=== PATIENT | female | born 1960 | race Hispanic/Latino ===

== ENCOUNTER 2019-02-15 11:32 | Emergency (ER) | payer MEDICAID ==
--- NOTE | 2019-02-15 11:45 | Event Note ---
ED Screening Note ED Screening Note: G tube is not working as well abdominal discomfort +nausea, diarrhea This initial assessment/diagnostic orders/clinical plan/treatment(s) is/are subject to change based on patients health status, clinical progression and re- assessment by fellow clinical providers in the ED. Further treatment and workup at subsequent clinical providers discretion. Patient/guardian urged not to elope from the ED as their condition may be serious if not clinically assessed and managed. Initial orders include: XR abdomen, labs
--- NOTE | 2019-02-15 12:14 | Emergency Department Report ---
ED General Adult HPI - General Chief complaint: Medical Clearance Stated complaint: G TUBE Time Seen by Provider: 02/15/19 11:43 Source: family Mode of arrival: Wheelchair Limitations: Other - History of Present Illness Initial comments: Patient is 59 years old female with history of mental retardation and hypertension. Patient brought to the emergency room by her caregiver stating that yesterday however due to was blocked but they're able to use it this morning. Caregiver noted that she has some nausea, vomiting and diarrhea this morning. Caregiver denied any fever or chills. They stated that she has been acting normal. Patient is not communicating so unable to provide more history. - Related Data Home Medications Medication Instructions Recorded Confirmed Last Taken Alendronate Sodium [Fosamax] 10 mg FEEDTUBE DAILY 08/11/13 10/11/13 10/11/13 Ascorbic Acid [Vitamin C] 500 mg PO DAILY 08/11/13 10/11/13 10/11/13 Aspirin [Aspirin BABY CHEW TAB] 81 mg FEEDTUBE DAILY 08/11/13 10/11/13 10/11/13 Benztropine [Cogentin] 2 mg FEEDTUBE DAILY 08/11/13 10/11/13 10/11/13 Calcium Citrate/Vitamin D3 200 tab FEEDTUBE DAILY 08/11/13 10/11/13 10/11/13 [Calcium Cit-Vit D 250-200 Cplt] Cetirizine HCl [Cetirizine 10mg 10 mg FEEDTUBE DAILY 08/11/13 10/11/13 10/11/13 chew] Guar Gum [Benefiber] 1 each FEEDTUBE DAILY 08/11/13 10/11/13 10/11/13 LORazepam [Ativan] 2 mg FEEDTUBE BID 08/11/13 10/11/13 10/11/13 Mirtazapine [Remeron] 30 mg FEEDTUBE DAILY 08/11/13 10/11/13 10/11/13 Multivitamin/Iron/Folic Acid [One 1 each FEEDTUBE DAILY 08/11/13 10/11/13 10/11/13 Daily Plus Iron Tablet] Olanzapine [ZyPREXA Zydis] 20 mg FEEDTUBE DAILY 08/11/13 10/11/13 10/11/13 Polyethylene Glycol 3350 [Miralax] 255 gm FEEDTUBE DAILY 02/10/11/13 10/11/13 Ranitidine HCl [Acid Nuclear Reactor Engineer 75mg 75 mg FEEDTUBE BID 08/11/13 10/11/13 10/11/13 Tab] Previous Rx's Medication Instructions Recorded Last Taken Type Ondansetron [Zofran Oral Liq] 4 mg PO Q4-6H PRN #40 ml 10/11/13 Unknown Rx Allergies Allergy/AdvReac Type Severity Reaction Status Date / Time oxybutynin chloride AdvReac Unknown Verified 02/15/19 11:33 [From Ditropan] ED Review of Systems ROS: Stated complaint: G TUBE Other details as noted in HPI Comment: All other systems reviewed and negative Constitutional: denies: chills, fever Respiratory: denies: cough, shortness of breath, SOB with exertion, SOB at rest Cardiovascular: denies: chest pain, palpitations Gastrointestinal: nausea, vomiting, diarrhea Musculoskeletal: denies: back pain ED Past Medical Hx - Past Medical History Hx Hypertension: Yes Hx GERD: Yes Additional medical history: Mental Retardation, Osteoporosis, Anemia - Surgical History Additional Surgical History: g-tube - Social History Smoking Status: Never Smoker Substance Use Type: None - Medications Home Medications: Home Medications Medication Instructions Recorded Confirmed Last Taken Type Alendronate Sodium [Fosamax] 10 mg FEEDTUBE DAILY 08/11/13 10/11/13 10/11/13 History Ascorbic Acid [Vitamin C] 500 mg PO DAILY 08/11/13 10/11/13 10/11/13 History Aspirin [Aspirin BABY CHEW TAB] 81 mg FEEDTUBE DAILY 08/11/13 10/11/13 10/11/13 History Benztropine [Cogentin] 2 mg FEEDTUBE DAILY 08/11/13 10/11/13 10/11/13 History Calcium Citrate/Vitamin D3 200 tab FEEDTUBE DAILY 08/11/13 10/11/13 10/11/13 History [Calcium Cit-Vit D 250-200 Cplt] Cetirizine HCl [Cetirizine 10mg 10 mg FEEDTUBE DAILY 08/11/13 10/11/13 10/11/13 History chew] Guar Gum [Benefiber] 1 each FEEDTUBE DAILY 08/11/13 10/11/13 10/11/13 History LORazepam [Ativan] 2 mg FEEDTUBE BID 02/10/11/13 10/11/13 History Mirtazapine [Remeron] 30 mg FEEDTUBE DAILY 08/11/13 10/11/13 10/11/13 History Multivitamin/Iron/Folic Acid [One 1 each FEEDTUBE DAILY 08/11/13 10/11/13 10/11/13 History Daily Plus Iron Tablet] Olanzapine [ZyPREXA Zydis] 20 mg FEEDTUBE DAILY 08/11/13 10/11/13 10/11/13 History Polyethylene Glycol 3350 [Miralax] 255 gm FEEDTUBE DAILY 08/11/13 10/11/13 10/11/13 History Ranitidine HCl [Acid Nuclear Reactor Engineer 75mg 75 mg FEEDTUBE BID 08/11/13 10/11/13 10/11/13 History Tab] Ondansetron [Zofran Oral Liq] 4 mg PO Q4-6H PRN #40 ml 10/11/13 Unknown Rx ED Physical Exam - General Limitations: Physical Limitation, Other General appearance: alert, in no apparent distress - Eye Eye exam: Present: normal appearance - ENT ENT exam: Present: normal exam, normal orophraynx, mucous membranes moist - Neck Neck exam: Present: normal inspection, full ROM. Absent: tenderness, meningismus, lymphadenopathy, thyromegaly - Respiratory Respiratory exam: Present: normal lung sounds bilaterally - Cardiovascular Cardiovascular Exam: Present: regular rate, normal rhythm, normal heart sounds - GI/Abdominal GI/Abdominal exam: Present: soft, normal bowel sounds, other (G-tube in place, no surrounding erythema or discharge.). Absent: distended, tenderness, guarding, rebound, rigid, organomegaly, mass, bruit, pulsatile mass, hernia - Extremities Exam Extremities exam: Present: normal inspection, full ROM, normal capillary refill. Absent: pedal edema, calf tenderness - Back Exam Back exam: Present: normal inspection, full ROM. Absent: CVA tenderness (R), CVA tenderness (L), vertebral tenderness - Neurological Exam Neurological exam: Present: alert - Skin Skin exam: Present: warm, intact, normal color ED Course Vital Signs 02/15/19 02/15/19 11:43 12:57 Temperature 98.1 F 98.2 F Pulse Rate 87 76 Respiratory 18 19 Rate Blood Pressure 102/82 Blood Pressure 125/69 [Left] O2 Sat by Pulse 98 98 Oximetry ED Medical Decision Making - Lab Data Result diagrams: 02/15/19 11:58 02/15/19 11:58 - Radiology Data Radiology results: report reviewed Abdominal x-rays showed a fecal retention consistent with constipation. - Medical Decision Making Patient is 59 years old female with history of mental retardation and hypertension. Patient brought to the emergency room by her caregiver stating that yesterday however due to was blocked but they're able to use it this morning. Caregiver noted that she has some nausea, vomiting and diarrhea this morning. Caregiver denied any fever or chills. They stated that she has been acting normal. Patient is not communicating so unable to provide more history. Patient remained stable. G-tube checked and is functioning well. Labs reviewed that is unremarkable. Abdominal x-ray showed a fecal retention consistent with constipation. Patient given prescription for lactulose and advised to follow- up with primary care physician in the next 2-3 days and to return to the ER if symptoms are not improved. Critical care attestation.: If time is entered above; I have spent that time in minutes in the direct care of this critically ill patient, excluding procedure time. ED Disposition Clinical Impression: Malfunction of gastrostomy tube, Constipation Disposition: DC-01 TO HOME OR SELFCARE Is pt being admited?: No Condition: Stable Instructions: Constipation (ED), High Fiber Diet (ED) Referrals: PRIMARY CARE, [Primary Care Provider] - 3-5 Days
[2019-02-15 12:19] LABS: Basophils % (Auto) 0.3 % (0.0-1.8); Eosinophils % (Auto) 0.1 % (0.0-4.3); Hematocrit 38.9 % (30.3-42.9); Hemoglobin 13.4 gm/dl (10.1-14.3); Lymphocytes # (Auto) 0.5 K/mm3 (1.2-5.4); Lymphocytes % (Auto) 6.6 % (13.4-35.0); Mean Corpuscular HGB Conc 35 % (30-34); Mean Corpuscular Volume 92 fl (79-97); Monocytes # (Auto) 0.3 K/mm3 (0.0-0.8); Monocytes % (Auto) 4.6 % (0.0-7.3); Platelet Count 145 K/mm3 (140-440); Red Blood Count 4.22 M/mm3 (3.65-5.03); Red Cell Distribution Width 13.5 % (13.2-15.2)
--- NOTE | 2019-02-15 12:44 | XRay Report ---
ABDOMEN 2 VIEW(S) INDICATION / CLINICAL INFORMATION: G tube not flowing well, abdominal discomfort. COMPARISON: None available. FINDINGS: TUBES / LINES: None. BOWEL GAS PATTERN/EXTRALUMINAL GAS: No significant abnormality. No pneumatosis or secondary signs of free air. Moderate amount of stool in the colon. ADDITIONAL FINDINGS: No significant additional findings. IMPRESSION: 1. No acute findings. Moderate amount stool in the colon which may indicate underlying constipation. Signer Name: Valente Bacon MD Signed: 02/15/2019 12:39 PM Workstation Name: [id number]
[2019-02-15 12:47] LABS: Alanine Aminotransferase 19 units/L (7-56); Albumin 4.4 g/dL (3.9-5); BUN/Creatinine Ratio 20; Blood Urea Nitrogen 14 mg/dL (7-17); Calcium 9.6 mg/dL (8.4-10.2); Hemolysis Index 13
[2019-02-15 12:57] VITALS: BP 125/69
== END 2019-02-15 14:05 | disposition home or self-care (01) ==
LOC: ED 11:32
DX: K94.23 Gastrostomy malfunction (principal); K59.00 Constipation, unspecified; I10 Essential (primary) hypertension; K21.9 Gastro-esophageal reflux disease without esophagitis; F79 Unspecified intellectual disabilities; Z88.8 Allergy status to other drugs, medicaments and biological substances; Z79.899 Other long term (current) drug therapy
CPT/HCPCS: 36415; 74019; 80053; 83690; 85025

== ENCOUNTER 2019-08-01 13:16 | Emergency (ER) | payer MEDICAID ==
[2019-08-01 14:16] VITALS: BP 137/67
--- NOTE | 2019-08-01 14:16 | Emergency Department Report ---
Chief Complaint: Medical Clearance Stated Complaint: GTUBE LEAKING Time Seen by Provider: 08/01/19 14:15 - HPI History of Present Illness: 59 y/o female with developmental delay s/p g tube placement last week by Dr Vinita Toussaint, presents with care givers for leaking g tube no n/v fevers chills xr abd labs d/w Dr Toussaint reassess Vital Signs 08/01/19 14:14 Temperature 97.4 F L Pulse Rate 69 Respiratory 22 Rate Blood Pressure 137/67 O2 Sat by Pulse 100 Oximetry MSE screening note: Focused history and physical exam performed. Due to findings the following was ordered: ED Disposition for MSE Condition: Stable
[2019-08-01 15:09] LABS: Hematocrit 34.9 % (30.3-42.9); Hemoglobin 12.1 gm/dl (10.1-14.3); Mean Corpuscular HGB Conc 35 % (30-34); Mean Corpuscular Volume 92 fl (79-97); Platelet Count 150 K/mm3 (140-440); Red Cell Distribution Width 12.9 % (13.2-15.2)
[2019-08-01 15:20] LABS: INR 0.92 (0.87-1.13)
[2019-08-01 15:25] LABS: BUN/Creatinine Ratio 30; Blood Urea Nitrogen 15 mg/dL (7-17); Hemolysis Index 86
--- NOTE | 2019-08-01 15:31 | XRay Report ---
ABDOMEN 1 VIEW(S) INDICATION / CLINICAL INFORMATION: leaking g tube. COMPARISON: 02/15/2019 FINDINGS: TUBES / LINES: PEG tube overlies the left upper quadrant. BOWEL GAS PATTERN: No significant abnormality. FREE AIR / EXTRALUMINAL GAS: None seen. ADDITIONAL FINDINGS: No significant additional findings. IMPRESSION: No significant abnormality. No obvious abnormality with the PEG tube. Signer Name: Lalito Alan Jr, MD Signed: 08/01/2019 3:26 PM Workstation Name: [id number]
--- NOTE | 2019-08-01 18:07 | Emergency Department Report ---
ED General Adult HPI - General Chief complaint: Medical Clearance Stated complaint: GTUBE LEAKING Time Seen by Provider: 08/01/19 14:15 Source: RN/MD Mode of arrival: Wheelchair Limitations: Other - History of Present Illness Initial comments: A 59-year-old female with developmental delay who presents to the emergency room leakage around G-tube. Patient direct care worker at bedside and states she noticed leakage around G-tube during 1000 feeding. Patient caregiver reports new G-tube placement last week by Dr. Vinita Pino. States they called Dr. Pino and told to come to the ER for evaluation. -: This morning Time: 10:00 Location: abdomen (G-tube) Radiation: non-radiation Improves with: none Worsens with: none Associated Symptoms: denies other symptoms Treatments Prior to Arrival: none - Related Data Home Medications Medication Instructions Recorded Confirmed Last Taken Alendronate Sodium [Fosamax] 10 mg FEEDTUBE DAILY 08/11/13 10/11/13 10/11/13 Ascorbic Acid [Vitamin C] 500 mg PO DAILY 08/11/13 10/11/13 10/11/13 Aspirin [Aspirin BABY CHEW TAB] 81 mg FEEDTUBE DAILY 08/11/13 10/11/13 10/11/13 Benztropine [Cogentin] 2 mg FEEDTUBE DAILY 08/11/13 10/11/13 10/11/13 Calcium Citrate/Vitamin D3 200 tab FEEDTUBE DAILY 08/11/13 10/11/13 10/11/13 [Calcium Cit-Vit D 250-200 Cplt] Cetirizine HCl [Cetirizine 10mg 10 mg FEEDTUBE DAILY 08/11/13 10/11/13 10/11/13 chew] Guar Gum [Benefiber] 1 each FEEDTUBE DAILY 08/11/13 10/11/13 10/11/13 LORazepam [Ativan] 2 mg FEEDTUBE BID 08/11/13 10/11/13 10/11/13 Mirtazapine [Remeron] 30 mg FEEDTUBE DAILY 08/11/13 10/11/13 10/11/13 Multivitamin/Iron/Folic Acid [One 1 each FEEDTUBE DAILY 08/11/13 10/11/13 10/11/13 Daily Plus Iron Tablet] Olanzapine [ZyPREXA Zydis] 20 mg FEEDTUBE DAILY 08/11/13 10/11/13 10/11/13 Polyethylene Glycol 3350 [Miralax] 255 gm FEEDTUBE DAILY 08/11/13 10/11/13 10/11/13 Ranitidine HCl [Acid Clinical Laboratory Aides Teacher 75mg 75 mg FEEDTUBE BID 08/11/13 10/11/13 10/11/13 Tab] Previous Rx's Medication Instructions Recorded Last Taken Type Ondansetron [Zofran Oral Liq] 4 mg PO Q4-6H PRN #40 ml 10/11/13 Unknown Rx Lactulose 10 gm PO DAILY PRN #150 ml 02/15/19 Unknown Rx Pantoprazole Sodium [Protonix] 40 mg PO DAILY #30 granpkt. 08/01/19 Unknown Rx Allergies Allergy/AdvReac Type Severity Reaction Status Date / Time oxybutynin chloride AdvReac Unknown Verified 02/15/19 11:33 [From Ditropan] ED Review of Systems ROS: Stated complaint: GTUBE LEAKING Other details as noted in HPI Constitutional: denies: chills, fever Respiratory: denies: cough, shortness of breath, wheezing Cardiovascular: denies: chest pain, palpitations Gastrointestinal: other (G-tube leakage). denies: nausea, diarrhea Skin: denies: rash, lesions Neurological: denies: headache, weakness, paresthesias Psychiatric: denies: anxiety, depression ED Past Medical Hx - Past Medical History Previous Medical History?: Yes Hx Hypertension: Yes Hx GERD: Yes Additional medical history: Mental Retardation, Osteoporosis, Anemia - Surgical History Past Surgical History?: Yes Additional Surgical History: g-tube - Social History Smoking Status: Never Smoker - Medications Home Medications: Home Medications Medication Instructions Recorded Confirmed Last Taken Type Alendronate Sodium [Fosamax] 10 mg FEEDTUBE DAILY 08/11/13 10/11/13 10/11/13 History Ascorbic Acid [Vitamin C] 500 mg PO DAILY 08/11/13 10/11/13 10/11/13 History Aspirin [Aspirin BABY CHEW TAB] 81 mg FEEDTUBE DAILY 08/11/13 10/11/13 10/11/13 History Benztropine [Cogentin] 2 mg FEEDTUBE DAILY 08/11/13 10/11/13 10/11/13 History Calcium Citrate/Vitamin D3 200 tab FEEDTUBE DAILY 0210/11/13 10/11/13 History [Calcium Cit-Vit D 250-200 Cplt] Cetirizine HCl [Cetirizine 10mg 10 mg FEEDTUBE DAILY 08/11/13 10/11/13 10/11/13 History chew] Guar Gum [Benefiber] 1 each FEEDTUBE DAILY 08/11/13 10/11/13 10/11/13 History LORazepam [Ativan] 2 mg FEEDTUBE BID 08/11/13 10/11/13 10/11/13 History Mirtazapine [Remeron] 30 mg FEEDTUBE DAILY 08/11/13 10/11/13 10/11/13 History Multivitamin/Iron/Folic Acid [One 1 each FEEDTUBE DAILY 08/11/13 10/11/13 10/11/13 History Daily Plus Iron Tablet] Olanzapine [ZyPREXA Zydis] 20 mg FEEDTUBE DAILY 08/11/13 10/11/13 10/11/13 History Polyethylene Glycol 3350 [Miralax] 255 gm FEEDTUBE DAILY 08/11/13 10/11/1310/11 History Ranitidine HCl [Acid Clinical Laboratory Aides Teacher 75mg 75 mg FEEDTUBE BID 08/11/13 10/11/13 10/11/13 History Tab] Ondansetron [Zofran Oral Liq] 4 mg PO Q4-6H PRN #40 ml 10/11/13 Unknown Rx Lactulose 10 gm PO DAILY PRN #150 ml 02/15/19 Unknown Rx Pantoprazole Sodium [Protonix] 40 mg PO DAILY #30 08/01/19 Unknown Rx ED Physical Exam - General Limitations: Other General appearance: alert, in no apparent distress - Respiratory Respiratory exam: Present: normal lung sounds bilaterally. Absent: respiratory distress - Cardiovascular Cardiovascular Exam: Present: regular rate, normal rhythm. Absent: systolic murmur, diastolic murmur, rubs, gallop - GI/Abdominal GI/Abdominal exam: Present: soft, normal bowel sounds, other (G-tube RUQ, no discharge, no erythema, nontender). Absent: distended, tenderness, guarding, rebound, rigid, organomegaly - Extremities Exam Extremities exam: Present: normal inspection - Neurological Exam Neurological exam: Present: alert, oriented X3 - Psychiatric Psychiatric exam: Present: normal affect, normal mood - Skin Skin exam: Present: warm, dry, intact, normal color. Absent: rash ED Course Vital Signs 08/01/19 14:14 Temperature 97.4 F L Pulse Rate 69 Respiratory 22 Rate Blood Pressure 137/67 O2 Sat by Pulse 100 Oximetry ED Medical Decision Making - Lab Data Result diagrams: 08/01/19 14:41 08/01/19 14:41 Lab Results 08/01/19 08/01/19 08/01/19 Range/Units 14:41 14:41 14:41 WBC 4.3 L (4.5-11.0) K/mm3 RBC 3.80 (3.65-5.03) M/mm3 Hgb 12.1 (10.1-14.3) gm/dl Hct 34.9 (30.3-42.9) % MCV 92 (79-97) fl MCH 32 (28-32) pg MCHC 35 H (30-34) % RDW 12.9 L (13.2-15.2) % Plt Count 150 (140-440) K/mm3 PT 12.5 (12.2-14.9) Sec. INR 0.92 (0.87-1.13) Sodium 121 L (137-145) mmol/L Potassium 4.9 (3.6-5.0) mmol/L Chloride 83.5 L (98-107) mmol/L Carbon Dioxide 24 (22-30) mmol/L Anion Gap 18 mmol/L BUN 15 (7-17) mg/dL Creatinine 0.5 L (0.7-1.2) mg/dL Estimated GFR > 60 ml/min BUN/Creatinine Ratio 30 % Glucose 92 (65-100) mg/dL Calcium 9.0 (8.4-10.2) mg/dL Magnesium 2.10 (1.7-2.3) mg/dL Total Creatine Kinase 116 (30-135) units/L - Radiology Data Radiology results: report reviewed ABDOMEN 1 VIEW(S) INDICATION / CLINICAL INFORMATION: leaking g tube. COMPARISON: 02/15/2019 FINDINGS: TUBES / LINES: PEG tube overlies the left upper quadrant. BOWEL GAS PATTERN: No significant abnormality. FREE AIR / EXTRALUMINAL GAS: None seen. ADDITIONAL FINDINGS: No significant additional findings. IMPRESSION: No significant abnormality. No obvious abnormality with the PEG tube. - Medical Decision Making This is a 59-year-old female that presents to the emergency room with reflux. Vitals are stable inpatient in no acute distress. CBC, PT/INR, and BMP was ob tained. All labs are unremarkable for acute infection. X-ray of abdomen findings of no significant abnormality. No obvious abnormality with the G tube. Nursing staff and myself flushed G-tube without resistance. There is mild reflux with no drainage around site, no erythema, no tenderness to suspect infection. Start Pepcid for reflux. Patient and caregiver instructed to follow-up with Dr. Polk's. Critical care attestation.: If time is entered above; I have spent that time in minutes in the direct care of this critically ill patient, excluding procedure time. ED Disposition Clinical Impression: Gastrointestinal tube present Gastroesophageal reflux Qualifiers: Esophagitis presence: without esophagitis Qualified Code(s): K21.9 - Gastro-eso phageal reflux disease without esophagitis Disposition: TO HOME OR SELFCARE Is pt being admited?: No Condition: Stable Instructions: Gastroesophageal Reflux Disease (ED) Additional Instructions: Follow up with Dr. Polk's for further evaluation of G-tube. Give Pepcid daily to prevent reflux through G-tube. Return to the emergency room if worsening symptoms. Prescriptions: Pantoprazole Sodium [Protonix] 40 mg PO DAILY #30 granpkt. Referrals: LLOYD PINO MD [Staff Physician] - 3-5 Days Time of Disposition: 20:42
--- NOTE | 2019-08-01 21:00 | Emergency Department Report ---
Chief Complaint: Medical Clearance Stated Complaint: GTUBE LEAKING Time Seen by Provider: 08/01/19 14:15 - Exam Vital Signs: Vital Signs 08/01/19 14:14 Temperature 97.4 F L Pulse Rate 69 Respiratory 22 Rate Blood Pressure 137/67 O2 Sat by Pulse 100 Oximetry MSE screening note: Focused history and physical exam performed. Due to findings the following was ordered: ED Medical Decision Making - Lab Data Result diagrams: 08/01/19 14:41 08/01/19 14:41 ED Disposition for MSE Clinical Impression: Gastrointestinal tube present Gastroesophageal reflux Qualifiers: Esophagitis presence: without esophagitis Qualified Code(s): K21.9 - Gastro- esophageal reflux disease without esophagitis Disposition: - TO HOME OR SELFCARE Condition: Stable Instructions: Gastroesophageal Reflux Disease (ED) Additional Instructions: Follow up with Dr. Polk's for further evaluation of G-tube. Give Pepcid daily to prevent reflux through G-tube. Return to the emergency room if worsening symptoms. Prescriptions: Pantoprazole Sodium [Protonix] 40 mg PO DAILY #30 juventinopkt. Referrals: LLOYD PINO MD [Staff Physician] - 3-5 Days
== END 2019-08-01 21:15 | disposition home or self-care (01) ==
LOC: ED 13:16
DX: T85.638A Leakage of other specified internal prosthetic devices, implants and grafts, initial encounter (principal); K21.9 Gastro-esophageal reflux disease without esophagitis; I10 Essential (primary) hypertension; Z98.890 Other specified postprocedural states; Z79.899 Other long term (current) drug therapy; Z88.8 Allergy status to other drugs, medicaments and biological substances
CPT/HCPCS: 36415; 74018; 80048; 82550; 83735; 85027; 85610